=== PATIENT | female | born 1965 | race Caucasian/White ===

== ENCOUNTER 2025-03-28 10:58 | Outpatient (CLI) | payer OTHER, SELFPAY ==
--- NOTE | ~2025-03-28 | XR_ITS ---
The AP and oblique views of the SI joints Clinical history: Sacroiliitis FINDINGS: No fracture or dislocation seen. Joint spaces are intact. There is minimal degenerative brad nge of the SI joints. Soft tissues are unremarkable. IMPRESSION: Minimal degenerative change of the SI joints. Reviewed, dictated and finalized at location .
--- NOTE | ~2025-03-28 | XR_ITS ---
3 VIEWS THORACIC SPINE Ordering provider: Sd Caldwell MD History: . M54.6 - Pain in thoracic spine, NKI, DETORIATING SPINE . Comparison: None. FINDINGS: VERTEBRAL BODIES: Dextroscoliosis. Normal height and alignment. No visible fracture or subluxation. D egenerative changes of the spine. DISK SPACES: Narrowing of the disc spaces in the upper and midthoracic area. SOFT TISSUES: Normal. IMPRESSION: No acute osseous abnormality of the thoracic spine. Multilevel degenerative disc disease. Mild dextroscoliosis. Reviewed, dictated and finalized at location A.
--- NOTE | ~2025-03-28 | XR_ITS ---
3 VIEWS LUMBAR SPINE Ordering provider: Sd Caldwell MD History: . M54.9 - Dorsalgia, unspecified, NKI . Comparison: None. FINDINGS: VERTEBRAL BODIES:Minimal anterolisthesis at the level of L3-4. No visible fracture or subluxation. M ild dextroscoliosis. DISK SPACES: Narrowing of the disc L2-L3, L3-L4, L4-L5 and L5-S1. Facet joint disease at the level of L4-L5 and L5-S1. SOFT TISSUES: Normal. IMPRESSION: No acute osseous abnormality lumbar spine. Multilevel degenerative disc disease. Reviewed, dictated and finalized at location A.
--- NOTE | ~2025-03-28 | XR_ITS ---
AP view of the pelvis and AP and lateral views of the bilateral hips Clinical history: Pain Findings: No acute fracture or dislocation is seen. Osseous alignment is anatomic. Bilateral hip and SI joint spaces are preserved. Soft tissues are unremarkable. Impression: No significant abnormality is seen. Reviewed, dictated and finalized at location . Impression: No significant abnormality is seen.
--- OUTSIDE RECORDS SUMMARY | 2025-03-28 12:01 | XMS_ITS | Clinical Summary ---
Author Organization [facility] Address [address] [place] [address] Care Team Providers Care Mash Filter Cloth Changer Name Role Phone Jorge Alberto Young DO Primary Care Provider Source Comments [facility],non-owned Affiliates and Associated Physician Practices is amultiple site organization consisting of ambulatory clinics and hospital sitesin [place], [place], [place] and [place]. This disclosure is being madepursuant to the Care Everywhere program and may not contain all information available regarding this patient. Last updated 18.[facility] Allergies No known active allergies Medications * Be aware that medications may not be up to date on this document. Alwaysverify current medications with the patient. meloxicam (MOBIC) 15 MG tablet Take 15 mg by mouth 02/12/2019 Active Citalopram Hydrobromide (CITALOPRAM PO) Acti ve methocarbamol (Robaxin) 500 MG tabletIndications :Spasm of muscle Take 1 (one) tablet by mouth every 6 hours as needed for Muscle Spasms 90 tablet 3 09/24/2022 Active Active Problems Problem Noted Date Diagnosed Date Lumbar radiculopathy 07/03/2021 Grief reaction 06/22/2020 Anxiety 12/25/2017 Left knee pain 11/05/2017 Hyperlipidemia 06/07/2016 Hypertension 06/07/2016 Immunizations Immunization Administration Dates Next Due INFLUENZA VACCINE 08/15/2017,09/29/2015 TDAP (7yrs+) 09/07/2016 Social History Tobacco Use Types Packs/Day Years Used Date Smoking Tobacco: Never Smokeless Tobacco: Never Tobacco Cessation:Counseling Given: Not Answered Alcohol Use Standard Drinks/Week Comments No 0 (1 standard drink = 0.6 oz pur e alcohol) PHQ-2 Answer Date Recorded PHQ2 TOTAL SCORE 2 09/24/2022 Comments No Sex and Gender Information Value Date Recorded Sex Assigned at Not on file Legal Sex Female 4:08 PM CDT Gender Identity Not on file Sexual Orientation Not on file Last Filed Vital Signs Vital Sign Reading Time Taken Comments Blood Pressure 138/88 09/24/2022 10:42 AM CDT Pulse 89 09/24/2022 10:42 AM CDT Temperature 36.7 C (98 F) 09/24/2022 10:42 AM CDT Respiratory Rate 16 05/08/2019 2:23 PM CDT Oxygen Saturation 99% 09/24/2022 10:42 AM CDT Inhaled Oxygen Concentration - - Weight 63 kg (138 lb 12.8 oz) 09/24/2022 10:42 A M CDT Height 170.2 cm (5' 7 ) 09/24/2022 10:42 AM CDT Body Mass Index 21.74 09/24/2022 10:42 AM CDT Plan of Treatment Health Maintenance Due Date Last Done Comments COLOGUARD (AGES 45-75) - COL ON CA SCREENING 1963 COLON MONITORING 1963 COLONOSCOPY - COLON CA SCREENING 1963 CT COLONOGRAPHY - COLON CA SCREENING 1963 Colorectal Cancer Screening 1963 FIT - COLON CA SCREENING 1963 FLEX SIG - COLON CA SCREENING 1963 MAMMOGRAM 1963 PAP SMEAR 1963 HIV SCREENING 1978 PNEUMOCOCCAL VACCINE 50+ (1 of 1 - PCV) 2013 ZOSTER VACCINE (1 of 2) 2013 COVID-19 VACCINE ( - 2023-2 5 season) 2024 DEPRESSION SCREENING 11/24/2024 09/24/2022 INFLUENZA VACCINE (Season Ended) 2025 08/15/2017, 09/29/2015 DTAP/TDAP/TD VACCINES (2 - T d or Tdap) 09/07/2026 09/07/2016 LIPID TESTING 06/24/2027 06/24/2022, 03/12/2019 Respiratory Syncytial Virus (RSV) Vaccine Pt: or over 60 yrs (1 - 1-dose 75+ series) 2038 HEPATITIS C SCREENING Completed 06/24/2022 HEPATITIS B VACCINE Aged Out No longe r eligible based on patient's age to complete this topic HIB VACCINE Aged Out No longer eligi ble based on patient's age to complete this topic HPV VACCINE Aged Out No longer eligi ble based on patient's age to complete this topic MENINGOCOCCAL (Group B) VACCINE SHARED DECISION-MAKING Aged Out No longer eligible based on patient's age to complete this topic MENINGOCOCCAL GROUPS A/C/Y/W VACCINE Aged Out No longer eligible b ased on patient's age to complete this topic Insurance [employer] [place] [address] [place] [address] [facility] [place] [facility] [place] Member Subscriber Plan / Payer (Ef fective for All Dates) Name:Catie Jefferson Relation to Subscriber:Self Name:GARFIELD JEFFERSON Payer ID:Not on file Group ID:Not on file Type:Medicaid [place] Address: [place] [id number] [facility] [place] Member Subscriber Plan / Payer (Ef fective for All Dates) Name:Catie Jefferson Relation to Subscriber:Self Name:GARFIELD JEFFERSON Payer ID:Not on file Group ID:Not on file Type:Medicaid [place] Address: [place] [id number] [facility] [place] [facility] [place] [facility] [place] [facility] [place] [facility] [place] [facility] [place] [facility] [place] [facility] [place] [facility] [place] [facility] [place] [facility] [place] [facility] [place] [facility] [place] Member Subscriber Plan / Payer (Ef fective for All Dates) Name:Catie Jefferson Relation to Subscriber:Self Name:GARFIELD JEFFERSON Payer ID:Not on file Group ID:Not on file Type:Medicaid [place] Address: [address] Member Subscriber Plan / Payer (Ef fective for All Dates) Name:Catie Jefferson Relation to Subscriber:Self Name:GARFIELD JEFFERSON Payer ID:Not on file Group ID:Not on file Type:Medicaid [place] Address: [address] Member Subscriber Plan / Payer (Ef fective for All Dates) Name:Catie Jefferson Relation to Subscriber:Self Name:GARFIELD JEFFERSON Payer ID:Not on file Group ID:Not on file Type:Medicaid [place] Address: [address] Care Teams Mash Filter Cloth Changer Relationship Specialty Start Date End Date Jorge Alberto Young DO PCP - General Family Medicine 05/08/19
--- OUTSIDE RECORDS SUMMARY | 2025-03-28 12:01 | XMS_ITS | Encounter Summary ---
Author Organization [facility] Care Team Providers Care Delivery Department Supervisor Name Role Phone Unknown, Notinfile Primary Care Provider Unavail able Encounter Details Date Type Department Care Team (Latest Contact Info) Description 01/19/2018 Orders Only [facility] CLINCONV ProviderIshmael MD [address] [place] [address] Social History Tobacco Use Types Packs/Day Years Used Date Smoking Tobacco: Never Assessed Comments Unknown Sex and Gender Information Value Date Recorded Sex Assigned at Not on file Legal Sex Female 2:24 AM HYDROELECTRIC MECHANIC Gender Identity Not on file Sexual Orientation Not on file documented as of this encounter Plan of Treatment Not on file documented as of this encounter Procedures Procedure Name Priority Date/Time Associated Diagnosis Comments SCAN - PATHOLOGY 01/19/2018 12:0 0 AM HYDROELECTRIC MECHANIC CYTOLOGY 01/19/2018 12:00 AM HYDROELECTRIC MECHANIC documented in this encounter Results * CYTOLOGY (01/19/2018 12:00 AM HYDROELECTRIC MECHANIC) Narrative 01/19/2018 12:00 AM HYDROELECTRIC MECHANIC Ordered by an unspecified provider. Historical Provider LAB CYTOLOGY ORDERABLES F inal Result * SCAN - PATHOLOGY (01/19/2018 12:00 AM HYDROELECTRIC MECHANIC) Narrative 01/19/2018 12:00 AM HYDROELECTRIC MECHANIC Ordered by an unspecified provider. us Historical Provider Final Res ult documented in this encounter Visit Diagnoses Not on filedocumented in this encounter Care Teams Delivery Department Supervisor Relationship Specialty Start Date End Date Unknown, Notinfluiza PCP - General 01/19/18 documented as of this encounter
--- OUTSIDE RECORDS SUMMARY | 2025-03-28 12:01 | XMS_ITS | Encounter Summary ---
Author Organization [facility] Address [facility] [place] [address] Care Team Providers Care Distribution Operation Supervisor Name Role Phone Shelly Thomas MD Primary Care Provider [phone] None, Provider Primary Care Provider Nelson Soto DO Primary Care Provider [phone] Encounter Details Date Type Department Care Team (Late st Contact Info) Description 06/27/2022 MyChart Message Enc [facility] Family Medicine [facility] [address] [place] [address] Shelly Thomas MD [address] [place] [address] UA Social History Tobacco Use Types Packs/Day Years Used Date Smoking Tobacco: Every Day Cigarettes Smokeless Tobacco: Never Comments:provider will addre ss Alcohol Use Standard Drinks/Week Comments No 0 (1 standard drink = 0.6 oz pur e alcohol) PHQ-2 Answer Date Recorded PHQ-2 Score - If the patient scores above 3, please move on to questions 3-9 6 06/24/2022 Comments No Sex and Gender Information Value Date Recorded Sex Assigned at Female 02/25/2025 12:58 PM CDT Legal Sex Female 4:39 PM CDT Gender Identity Not on file Sexual Orientation Not on file 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 No / Unsure 06/26/2022 1:17 PM CDT documented as of this encounter Plan of Treatment Upcoming Encounters Date Type Department Care Team (Late st Contact Info) Description 03/28/2025 3:00 PM CDT Appointment [facility] Mammography [address] [place] [address] Elo Arenas, BRITTNY [address] [place], [place] [id number] 08/29/2025 10:00 AM CDT Office Visit [facility] Family Medicine - [place] [address] [place] [address] Nelson [place] [address] documented as of this encounter Visit Diagnoses Not on filedocumented in this encounter Additional Health Concerns Assessment Noted Time PHQ-9 Depression Total Score: 16 022 2:52 PM CDT documented as of this encounter Care Teams Distribution Operation Supervisor Relationship Specialty Start Date End Date Shelly Thomas MD [address] [place] [address] PCP - General FAMILY PRACTICE 06/24/22 01/09/23 None, Provider, PCP - General UNKNOWN PHYSICIAN SPECIALTY 01/10/23 05/09/24 Nelson Whatley DO [address] [place], [place] [id number] PCP - General FAMILY PRACTICE 05/10/24 documented as of this encounter
--- OUTSIDE RECORDS SUMMARY | 2025-03-28 12:01 | XMS_ITS | Encounter Summary ---
Author Organization [facility] Address [address] [place] [address] Care Team Providers Care Mortgage Processor Name Role Phone Chava John MD Primary Care Provider [phone] Shelly Thomas MD Primary Care Provider [phone], Provider Primary Care Provider UnavailShelly Mcgarry MD Primary Care Provider [phone] None, Provider Primary Care Provider UnavailNelson Bear DO Primary Care Provider [phone] Reason for Referral * Surgical (Routine) - Closed Specialty Diagnoses / Procedures Referred By Mildred brock Referred To Contact Procedures Case request operating room: INJECTION EPIDURAL TRANSFORAMINAL L5-S1 Ashley Ojeda APNP Phone: tel: fax: Referral ID Status Reason Start Date Expiration Date Visits Re quested Visits Authorized [id number] Closed 07/03/2021 08/03/2022 1 1 Encounter Details Date Type Department Care Team (Late st Contact Info) Description 07/03/2021 Prep for Procedure [facility] [place] [address] [id number] Ashley Ojeda APNP [address] [place] [address] Social History Tobacco Use Types Packs/Day Years Used Date Smoking Tobacco: Every Day Cigarettes Smokeless Tobacco: Never Alcohol Use Standard Drinks/Week Comments No 0 (1 standard drink = 0.6 oz pur e alcohol) Comments No Sex and Gender Information Value [...] Exposure Response Date Recorded In the last month, have you been in contact with someone who was confirmed or suspected to have Coronavirus / COVID-19? No / Unsure 07/03/2021 11:07 AM CDT documented as of this encounter Functional Status * Calculated C-SSRS Risk Score (Lifetime/Recent) Answer Date of Assessment Author Status No Risk Indicated 07/03/2021 11:43 AM CDT Zuleima Marsh RN Active * Douglas Suicide Severity Rating Scale (Screener/Recent Self-Report) Question Answer Date of Assessment Author Status 1. Wish to be (Past 1 Month) No 07/03/2021 11:43 AM CDT Bonnie Marsh RN Eliseo tive 2. Non-Specific Active Suicidal Thoughts (Past 1 Month) No 07/03/2021 11:43 AM CDT Bonnie Marsh RN Eliseo tive 6. Suicidal Behavior (Lifetime) No 07/03/2021 11:43 AM CDT Bonnie Marsh RN Ac tive documented as of this encounter Plan of Treatment Upcoming Encounters Date Type Department Care Team (Late st Contact Info) Description 03/28/2025 3:00 PM CDT Appointment [facility] Mammography [address] [place] [address] Elo Arenas NP [address] [place] [address] 08/29/2025 10:00 AM CDT Office Visit [facility] Family Medicine - [place] [address] [place] [address] [place] [address] Scheduled Orders Name Type Priority Associated Diagnoses Order Schedule Case request operating room: INJECTION EPIDURAL TRANSFORAMINAL L5-S1 Case Request Routine Once for 1 Occurrences starting 07/03/2021 until 07/03/2021 documented as of this encounter Visit Diagnoses Not on filedocumented in this encounter Care Teams Mortgage Processor Relationship Specialty Start Date End Date Chava John MD PCP - General FAMILY PRACTICE 05/05/20 05/23/22 Shelly Thomas MD [address] [place] [address] PCP - General FAMILY PRACTICE 05/24/22 06/08/22 None, ProviderMD PCP - General 06/09/22 06/23/22 Shelly Thomas MD [facility] [place] [address] PCP - General FAMILY PRACTICE 06/24/22 01/09/23 None, ProviderMD PCP - General UNKNOWN PHYSICIAN SPECIALTY 01/10/23 05/09/24 Nelson Whatley DO [address] [place] [address] PCP - General FAMILY PRACTICE 05/10/24 documented as of this encounter
--- OUTSIDE RECORDS SUMMARY | 2025-03-28 12:01 | XMS_ITS | Encounter Summary ---
Author Organization [facility] Address [address] [place] [address] Care Team Providers Care Sec Accountant Name Role Phone Nelson Whatley DO Primary Care Provider [phone] Encounter Details Date Type Department Care Team (Late st Contact Info) Description 10/11/2024 MyChart Message Enc [facility] Family Medicine [facility] [address] [place] [address] Nelson Whatley DO [address] [place] [address] Antidepressant Social History Tobacco Use Types Packs/Day Years Used Date Smoking Tobacco: Every Day Cigarettes Passive Smoke Exposure: Current Smokeless Tobacco: Never Comments:provider will addre ss Alcohol Use Standard Drinks/Week Comments No 0 (1 standard drink = 0.6 oz pur e alcohol) PHQ-2 Answer Date Recorded Patient Health Questionnaire-2 Score 4 08/18/2024 Comments No Sex and Gender Information Value Date Recorded Sex Assigned at Female 02/25/2025 12:58 PM CDT Legal Sex Female 4:39 PM CDT Gender Identity Not on file Sexual Orientation Not on file 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 Mammography [address] [place] [address] Elo Arenas, BRITTNY [address] [place] [address] 08/29/2025 10:00 AM CDT Office Visit [facility] Family Medicine - [place] [address] [place] [phone] Nelson Whatley DO [address] [place] [address] documented as of this encounter Visit Diagnoses Not on filedocumented in this encounter Additional Health Concerns Assessment Noted Time PHQ-9 Depression Total Score: 12 024 11:05 AM CDT documented as of this encounter Care Teams Sec Accountant Relationship Specialty Start Date End Date Nelson Whatley DO [address] [place] [address] PCP - General FAMILY PRACTICE 05/10/24 documented as of this encounter
--- OUTSIDE RECORDS SUMMARY | 2025-03-28 12:01 | XMS_ITS | Encounter Summary ---
Author Organization [facility] Address [facility] [place] [address] Care Team Providers Care Ships Or Barges Loader Name Role Phone Shelly Thomas MD Primary Care Provider [phone] None, Provider Primary Care Provider Nelson Soto DO Primary Care Provider [phone] Encounter Details Date Type Department Care Team (Late st Contact Info) Description 07/20/2022 MyChart Message Enc [facility] Family Medicine [facility] [address] [place] [address] Shelly Thomas MD [address] [place] [address] Covid Social History Tobacco Use Types Packs/Day Years [...] was confirmed or suspected to have Coronavirus/COVID-19? Yes 07/09/2022 2:53 PM CDT documented as of this encounter Plan of Treatment Upcoming Encounters Date Type Department Care Team (Late st Contact Info) Description 03/28/2025 3:00 PM CDT Appointment [facility] Mammography [address] [place] [address] Elo Arenas, BRITTNY [address] [place], [place] [phone] 08/29/2025 10:00 AM CDT Office Visit [facility] Family Medicine - [place] [address] [place] [address] Nelson Whatley DO [address] [place] [address] documented as of this encounter Visit Diagnoses Not on filedocumented in this encounter Additional Health Concerns Assessment Noted Time PHQ-9 Depression Total Score: 16 022 2:52 PM CDT documented as of this encounter Care Teams Ships Or Barges Loader Relationship Specialty Start Date End Date Shelly Thomas MD [address] [place] [address] PCP - General FAMILY PRACTICE 06/24/22 01/09/23 None, Provider, PCP - General UNKNOWN PHYSICIAN SPECIALTY 01/10/23 05/09/24 Nelson Whatley DO [address] [place] [address] PCP - General FAMILY PRACTICE 05/10/24 documented as of this encounter
--- OUTSIDE RECORDS SUMMARY | 2025-03-28 12:01 | XMS_ITS | Encounter Summary ---
Author Organization [facility] Address [address] [place] [address] Care Team Providers Care Vp Strategic Partnerships Name Role Phone Shelly Thomas MD Primary Care Provider [phone] None, Provider Primary Care Provider Nelson Soto DO Primary Care Provider [phone] Encounter Details Date Type Department Care Team ([facility] Contact Info) Description 11/01/2022 TenBu Technologiest Message Enc [facility] Family Medicine [facility] [address] [place] [address] [place] [address] [place] [address] I need appt with someone for mental health Social History Tobacco Use Types Packs/Day Years [...] Encounters Date Type Department Care Team (Late Contact Info) Description 03/28/2025 3:[address] [facility] Mammography [address] [place] [address] Elo Arenas, BRITTNY [address] [place], [place] [id number] 08/29/2025 10:00 AM CDT Office Visit [facility] Family Medicine - [place] [address] [place] [address] Nelson Whatley DO [address] [place] [address] documented as of this encounter Visit Diagnoses Not on filedocumented in this encounter Additional Health Concerns Assessment Noted Time PHQ-9 Depression Total Score: 16 022 2:52 PM CDT documented as of this encounter Care Teams Vp Strategic Partnerships Relationship Specialty Start Date End Date Shelly Thomas MD [address] [place] [address] PCP - General FAMILY PRACTICE 06/24/22 01/09/23 None, Provider, PCP - General UNKNOWN PHYSICIAN SPECIALTY 01/10/23 05/09/24 Nelson Whatley DO [address] [place], [place] [phone] PCP - General FAMILY PRACTICE 05/10/24 documented as of this encounter
--- OUTSIDE RECORDS SUMMARY | 2025-03-28 12:01 | XMS_ITS | Encounter Summary ---
Author Organization [facility] Address [facility] [place] [address] Care Team Providers Care Manufactured Buildings Repairer Name Role Phone Shelly Thomas MD Primary Care Provider [phone] None, Provider Primary Care Provider Nelson Soto DO Primary Care Provider [phone] Encounter Details Date Type Department Care Team (Late st Contact Info) Description 09/02/2022 Hamstersoftt Message Enc [facility] Family Medicine [facility] [address] [place] [address] Shelly Thomas MD [address] [place] [address] Meds Social History Tobacco Use Types Packs/Day Years [...] confirmed or suspected to have Coronavirus/COVID-19? Yes 08/13/2022 9:30 AM CDT documented as of this encounter Plan of Treatment Upcoming Encounters Date Type Department Care Team (Late st Contact Info) Description 03/28/2025 3:00 PM CDT Appointment [facility] Mammography [address] [place] [address] Elo Arenas, BRITTNY [address] [place], [place] [phone] 08/29/2025 10:00 AM CDT Office Visit [facility] Family Medicine - [place] [address] [place] [address] Nelson [place] [address] documented as of this encounter Visit Diagnoses Not on filedocumented in this encounter Additional Health Concerns Assessment Noted Time PHQ-9 Depression Total Score: 16 022 2:52 PM CDT documented as of this encounter Care Teams Manufactured Buildings Repairer Relationship Specialty Start Date End Date Shelly Thomas MD [address] [place] [address] PCP - General FAMILY PRACTICE 06/24/22 01/09/23 None, Provider, PCP - General UNKNOWN PHYSICIAN SPECIALTY 01/10/23 05/09/24 Nelson Whatley DO [address] [place], [place] [phone] PCP - General FAMILY PRACTICE 05/10/24 documented as of this encounter
--- OUTSIDE RECORDS SUMMARY | 2025-03-28 12:01 | XMS_ITS | Referral Summary ---
Author Organization [facility] Address [address] [place] [address] [place] [address] Phone Care Team Providers Care Intake Worker Name Role Phone Unknown, Notinfile Primary Care Provider Unavail able Allergies No known active allergies Social History Tobacco Use Types Packs/Day Years Used Date Smoking Tobacco: Never Assessed Personal Safety Answer Date Recorded Getting School Help Needed Not on file 08/01 Comments No Sex and Gender Information Value Date Recorded Sex Assigned at Not on file Legal Sex Female 2:24 AM TORPEDO MAN Gender Identity Not on file Sexual Orientation Not on file Last Filed Vital Signs Vital Sign Reading Time Taken Comments Blood Pressure 113/69 06/22/2023 6:58 PM CDT Pulse 91 06/22/2023 6:58 PM CDT Temperature 36.9 C (98.4 F) 06/22/2023 6:58 PM CDT Respiratory Rate 14 06/22/2023 6:58 PM CDT Oxygen Saturation 96% 06/22/2023 6:58 PM CDT Inhaled Oxygen Concentration - - Weight 63.2 kg (139 lb 5.3 oz) 06/22/2023 6:58 P M CDT Height 172.7 cm (5' 8 ) 01/19/2018 6:00 PM TORPEDO MAN Body Mass Index 21.19 01/19/2018 6:00 PM TORPEDO MAN Plan of Treatment Not on file Procedures Procedure Name Priority Date/Time Associated Diagnosis Comments THINPREP PAP Routine 07/24/2015 6:00 PM CDT SCREENING MAMMOGRAM 2D BILATERAL Routine 07/26/2014 5:54 PM CDT from Last 3 Months or Most Recently Relevant to Health Maintenance Results * ThinPrep Pap (07/24/2015 6:00 PM CDT) Thin Prep Pap Smear SEE BELOW () 08/03 2:17 PM CDT [facility] HISTORICAL RESULTS Comment: Manual Qa Tester ThinPrep Cytology Final Report ThinPrep Pap Specimen Source Cervix/Endocervix Specimen Adequacy Satisfactory for interpretation, endocervical cells (transformation zone) not present. Interpretation Negative for intraepithelial lesion or malignancy. 08/03/15 Mine Inspector Federal: BETITO Mcmullen(ASC) 08/03/15 Verified By: BETITO Mcmullen(ASC) electronic signature [facility], Department of Pathology For questions regarding this case, call ext. [phone] CPT Code(s) 45092 Clinical History LMP: [id number] : N : N IUD: N Hormone Therapy: N Postmenopausal: N Previous surgery date and type: N Hysterectomy: N Chemotherapy: N NAHUN Exposure: N Radiation: N Previous Abnormal Pap? Details: N Diagnostic or Screening Pap Test: Screening Performed by [facility], [address] [place] [id number] [email or web address], Caio James MD - Lab. Director 07/24/2015 6:00 PM CDT 07/25/2015 3:17 PM CDT Sd Soria MD LAB PATHOLOGY ORDERABLE S Final Result [facility] HISTORICAL RESULTS * Screening Mammogram 2D Bilateral (07/26/2014 5:54 PM CDT) Anatomical Region Laterality Modality Breast Bilateral Mammography 07/26/2014 5:54 PM CDT Impressions 07/27/2014 9:18 AM CDT No mammographic evidence of malignancy. Routine annual screening mammography is recommended. ASSESSMENT: BI-RADS: 1 NEGATIVE. The patient will be entered into a reminder system for an annual screening mammogram in 1 year. THIS IS AN ELECTRONICALLY VERIFIED REPORT 07/27/2014 9:15 AM: Michael Prescott M.D. Michael Prescott M.D. [place]:verónica 09:15 AM 09:15 AM [facility] [EOD] Narrative 07/27/2014 9:18 AM CDT EXAMINATION: BILATERAL DIGITAL SCREENING MAMMOGRAM HISTORY: Routine screening. Family history of mother with breast cancer at age 65. COMPARISON: 10/28/2007, 06/12/2011 FINDINGS: There has been no suspicious interval change. There are scattered areas of fibroglandular density. There is no dominant mass, suspicious calcification or architectural distortion. CAD was utilized to evaluate this mammogram. Procedure Note Provider, MD Ishmael - 04/09/2021 EXAMINATION: BILATERAL DIGITAL SCREENING MAMMOGRAM HISTORY: Routine screening. Family history of mother with breast cancerat age 65. COMPARISON: 10/28/2007, 06/12/2011 FINDINGS: There has been no suspicious interval change. There are scattered areas of fibroglandular density. There is no dominant mass, suspicious calcification or architectural distortion. CAD was utilized to evaluate this mammogram. IMPRESSION: No mammographic evidence of malignancy. Routine annual screeningmammography is recommended. ASSESSMENT: BI-RADS: 1 NEGATIVE. The patient will be entered into [employer] PTY system for an annual screening mammogram in 1 year. THIS IS AN ELECTRONICALLY VERIFIED REPORT 07/27/2014 9:15 AM: Michael Prescott M.D. Michael Prescott M.D. NH:verónica 09:15 AM 09:15 AM [facility] [EOD] Sd Soria MD IMG MAMMO PROCEDURES Fi nal Result from Last 3 Months or Most Recently Relevant to Health Maintenance Insurance [facility] Care Teams Intake Worker Relationship Specialty Start Date End Date Unknown, Notinfile PCP - General 01/19/18
--- OUTSIDE RECORDS SUMMARY | 2025-03-28 12:01 | XMS_ITS | Encounter Summary ---
Author Organization [facility] Address [address] [place] [address] Care Team Providers Care Skein Mercerizing Machine Operator Name Role Phone Nelson Whatley DO Primary Care Provider [phone] Encounter Details Date Type Department Care Team (Late st Contact Info) Description 03/17/2025 MyChart Message Enc [facility] Medical Group Family Medicine [facility] [address] [place] [address] Nelson Whatley DO [address] [place] [address] back pain Social History Tobacco Use Types Packs/Day Years Used Date Smoking Tobacco: Every Day Cigarettes 0.5 3 Passive Smoke Exposure: Current Smokeless Tobacco: Never Comments:provider will addre ss Alcohol Use Standard Drinks/Week Comments No 0 (1 standard drink = 0.6 oz pur e alcohol) PHQ-2 Answer Date Recorded Patient Health Questionnaire-2 Score 0 02/25/2025 Comments No Sex and Gender Information Value [...] Info) Description 03/28/2025 3:00 PM CDT Appointment [facility] Mammography [address] [place] [address] Elo Arenas, BRITTNY [address] [place] [address] 08/29/2025 10:00 AM CDT Office Visit [facility] Medical Group Family Medicine - [place] [address] [place] [phone] Nelson Whatley DO [address] [place] [address] documented as of this encounter Visit Diagnoses Not on filedocumented in this encounter Additional Health Concerns Assessment Noted Time PHQ-9 Depression Total Score: 0 02/26/20 25 1:00 PM CDT documented as of this encounter Care Teams Skein Mercerizing Machine Operator Relationship Specialty Start Date End Date Nelson Whatley DO [address] [place] [address] PCP - General FAMILY PRACTICE 05/10/24 documented as of this encounter
--- OUTSIDE RECORDS SUMMARY | 2025-03-28 12:01 | XMS_ITS | Clinical Summary ---
Author Organization [facility] Address [address] [place] [address] Care Team Providers Care Loading Supervisor Name Role Phone Nelson Whatley DO Primary Care Provider Allergies No known active allergies Medications fluticasone propionate (FLONASE) 50 MCG/ACT nasal spray 4 Active atorvastatin (LIPITOR) 20 MG tabletIndications: Mixed hyperlipidemia Take 1 tablet (20 mg total) by mouth daily. 90 tablet 3 4 Active gabapentin (NEURONTIN) 400 MG capsuleIndications :Spinal stenosis of lumbar region without neurogenic claudication Take 1 capsule (400 mg total) by mouth 3 (three) times daily. 270 capsule 3 5 12/14/19 26 Active busPIRone (BUSPAR) 15 MG tabletIndications: Generalized anxiety disorder with panic attacks Take 1 tablet (15 mg total) by mouth 2 (two) times daily. 180 tablet 1 5 Active nitrofurantoin, macrocrystal-monoh ydrate, (MACROBID) 100 MG capsule 5 Active cyclobenzaprine (FLEXERIL) 10 MG tabletIndications: Degeneration of intervertebral disc of lumbar region with discogenic back pain and lower extremity pain Take 1 tablet (10 mg total) by mouth nightly as needed for Muscle Spasms. 30 tablet 5 Active clonazePAM (KLONOPIN) 0.5 MG tabletIndications: Generalized anxiety disorder with panic attacks Take 1 tablet (0.5 mg total) by mouth 2 (two) times daily as needed (panic/anxi ety). 10 tablet 5 Active clonazePAM (KLONOPIN) 0.5 MG tabletIndications: Generalized anxiety disorder with panic attacks Take 1 tablet (0.5 mg total) by mouth 2 (two) times daily as needed (panic/anxi ety). 10 tablet 5 03/07/20 25 Discontin ued(Reord er) clonazePAM (KLONOPIN) 0.5 MG tabletIndications: Generalized anxiety disorder with panic attacks Take 1 tablet (0.5 mg total) by mouth 2 (two) times daily as needed (panic/anxi ety). 10 tablet 5 03/26/20 25 Discontin ued(Reord er) Active Problems Problem Noted Date Diagnosed Date Moderate episode of recurrent major depressive d isorder 12/09/2024 Lumbar degenerative disc disease 08/18/2024 Spinal stenosis of lumbar re gion without neurogenic claudication 08/18/2024 Chronic rhinitis 08/18/2024 Lumbar radiculopathy 07/03/2021 Generalized anxiety disorder with panic attacks 12/25/2017 Hyperlipidemia 06/07/2016 Hypertension 06/07/2016 Resolved Problems Problem Noted Date Diagnosed Date Resolved Date Anxiety 06/22/2020 08/18/2024 Grief reaction 06/22/2020 08/18/2024 Left knee pain 11/05/2017 08/18/2024 Encounter for preventive health examination 06/07/2016 07/01/2022 Physical exam, pre-employment 06/07/2016 07/01/2022 Screen for colon cancer 06/07/2016 08/06/2022 Encounters Date Type Department Care Team Description 03/21/2025 10:00 AM CDT Telemedicine [facility] Family Medicine [address] [phone] Elo Arenas NP Back Pain (Patient would like to discuss muscle relaxers. Has appointment with Pain Management on 03/28/2025.) 03/21/2025 Travel 03/17/2025 MyChart Message Enc [facility] Family Medicine [address] [phone] Nelson Whatley, DO back pain 02/25/2025 1:00 PM CDT Office Visit [facility] Medical [facility] Family Medicine - [place] [address] [place] [address] Elo Arenas NP Follow Up (Medication f/u and labs results.) 02/25/2025 Travel from Last 3 Months Immunizations Immunization Administration Dates Next Due Fluzone (IIV3, Trivalent, 0.5 ML Prefilled Syrin ge) 08/18/2024 Influenza (Generic) 08/15/2017,09/29/2015 Tdap (Generic) 09/07/2016 Family History Medical History Relation Comments Heart Disease Father Depression Maternal Grandfather Arthritis Mother Cancer Mother Heart Disease Mother Hypertension Mother Miscarriages / Stillbirths Neg Hx Relation Status Comments Brother Other lupus Father Maternal Grandfather Mother lupus Social History Tobacco Use Types Packs/Day Years Used Date Smoking Tobacco: Every Day Cigarettes 0.5 3 Passive Smoke Exposure: Current Smokeless Tobacco: Never Tobacco Cessation:Ready to Q uit: Yes; Counseling Given: Yes Comments:provider will address Alcohol Use Standard Drinks/Week Comments No 0 [...] Not on file Not o n file Last Filed Vital Signs Vital Sign Reading Time Taken Comments Blood Pressure 110/78 02/25/2025 1:32 PM CDT Pulse 89 02/25/2025 12:55 PM CDT Temperature 37 C (98.6 F) 02/25/2025 12:55 PM CDT Respiratory Rate 16 08/18/2024 10:18 AM CDT Oxygen Saturation 99% 02/25/2025 12:55 PM CDT Inhaled Oxygen Concentration - - Weight 67.8 kg (149 lb 8 oz) 02/25/2025 12:55 PM CDT Height 167 cm (5' 5.75 ) 02/25/2025 12:55 PM CDT Body Mass Index 24.31 02/25/2025 12:55 PM CDT Plan of Treatment Upcoming Encounters Date Type Department Care Team (Late st Contact Info) Description 03/28/2025 3:00 PM CDT [facility] [address] [place] [address] Elo Arenas, BRITTNY [address] [place] [address] 08/29/2025 10:00 AM CDT Office Visit [facility] Family Medicine - [place] [address] [place] [address] Nelson Whatley DO [address] [place] [address] Health Maintenance Due Date Last Done Comments Cervical Cancer Screening Pa p Smear (Age 30 to 64) Every 3 Years 1963 Colorectal Cancer Screening Colonoscopy (10 Years) 1963 Pneumococcal Vaccine: 50+ Ye ars (1 of 2 - PCV) 1982 Zoster Vaccines (1 of 2) 2013 Mammogram Screening 07/26/2016 07/26/2014 Cervical Cancer Screening Pa p with HPV Testing (Age 30 to 64) Every 5 Years 01/19/2023 01/19/2018 Cervical Cancer Screening with HPV 01/19/2023 Annual Physical 06/24/2023 06/24/2022 COVID-19 Vaccine (2 - 2023-2 5 season) 2024 09/26/2021 DTaP, Tdap and Td Vaccines ( 2 - Td or Tdap) 09/07/2026 09/07/2016 RSV Immunization or 60+ Years (1 - 1-dose 75+ series) 2038 Hepatitis C Completed 06/24/2022 PHQ-2 (Physician Rincon) Completed 02/25/2025 Meningococcal B Vaccine Aged Out No l onger eligible based on patient's age to complete this topic Meningococcal Vaccine Aged Out No cinthia priscilla eligible based on patient's age to complete this topic RSV Immunizations Under 20 Months Aged Out No longer eligible based on patient's age to complete this topic Procedures Procedure Name Priority Date/Time Associated Diagnosis Comments HEPATITIS C ANTIBODY Routine 06/24/2022 3:26 PM CDT Encounter for hepatitis C screening test for low risk patient OUTSIDE CYTOPATH CERV/VAG INTERPRET (PAP) Routine 01/19/2018 from Last 3 Months or Most Recently Relevant to Health Maintenance Results * HEPATITIS C ANTIBODY (06/24/2022 3:26 PM CDT) HEPATITIS C AB NON-REACTI VE NON-REACT SWAPNIL 06/25/2022 2:21 PM CDT [facility] Comment: ANTIBODIES TO HCV NOT DETECTED. DOES NOT EXCLUDE THE POSSIBILITY OF EXPOSURE TO HCV. 06/24/2022 3:26 PM CDT Shelly Thomas MD LABORATORY Final Result Performing Organization Address City/Va Hospital/ZIP Co de Phone Number [facility] [address] [place] [address], [phone] * PAP SMEAR WITH HPV (01/19/2018) 01/19/2018 [facility] Scanned SCANNING [facility] from Last 3 Months or Most Recently Relevant to Health Maintenance Insurance [employer] Care Teams Loading Supervisor Relationship Specialty Start Date End Date Nelson Whatley DO [address] [place] [address] PCP - General FAMILY PRACTICE 05/10/24
--- OUTSIDE RECORDS SUMMARY | 2025-03-28 12:02 | XMS_ITS | Clinical Summary ---
Author Organization [facility] Address [address] [place] [address] [place] [address] Phone Care Team Providers Care Lucerne Farmer Name Role Phone Unknown, Notinfile Primary Care Provider Unavail able Allergies No known active allergies Social History Tobacco Use Types Packs/Day Years Used Date Smoking Tobacco: Never Assessed Personal Safety Answer Date Recorded Getting School Help Needed Not on file 08/01 Comments No Sex and Gender Information Value Date Recorded Sex Assigned at Not on file Legal Sex Female 2:24 AM METAL FABRICATING INSPECTOR Gender Identity Not on file Sexual Orientation [...] cm (5' 8 ) 01/19/2018 6:00 PM METAL FABRICATING INSPECTOR Body Mass Index 21.19 01/19/2018 6:00 PM METAL FABRICATING INSPECTOR Plan of Treatment Health Maintenance Due Date Last Done Comments Colon Cancer Screening-Colonoscopy 1963 Depression Screening 1963 Hepatitis C Screening 1963 Hepatitis B Screening 1981 Regular Well Visit/Exam 18-64 1981 Zoster Vaccine (1 of 2) 2013 Breast Cancer Screening-Mammogram 07/26/2015 07/26/2014 Cervical Cancer Screening 07/24/2016 07/24/2015, Covid-19 Vaccine ( - season) 2024 09/26/2021 Influenza Vaccine (Season Ended) 2025 08/15/2017, 08/15/2017, 09/29/2015, Additional history exists DTaP/Tdap/Td Vaccine (2 - Td or Tdap) 09/07/2026 09/07/2016 Pneumococcal vaccine <65 Aged Out No longer eligible based on [...] SEE BELOW () 08/03 2:17 PM CDT [facility] HISTORICAL RESULTS Comment: Supervisor Opening And Picking ThinPrep Cytology Final Report ThinPrep Pap Specimen Source Cervix/Endocervix Specimen Adequacy Satisfactory for interpretation, endocervical cells (transformation zone) not present. Interpretation Negative for intraepithelial lesion or malignancy. 08/03/15 Product Builder: BETITO Mcmullen(ASCP) 08/03/15 Verified By: BETITO Mcmullen(ASCP) electronic signature [facility], Department of Pathology For questions regarding this case, call ext. [phone] CPT Code(s) 24359 Clinical History LMP: [id number] : N : N IUD: N Hormone Therapy: N Postmenopausal: N Previous surgery date and type: N Hysterectomy: N Chemotherapy: N NAHUN Exposure: N Radiation: N Previous Abnormal Pap? Details: N Diagnostic or Screening Pap Test: Screening Performed by [facility], [address] [place] [id number] [email or web address], Caio James MD - Lab. Director 07/24/2015 6:00 PM CDT 07/25/2015 3:17 PM CDT Sd Soria MD LAB PATHOLOGY ORDERABLE S Final Result [facility] HISTORICAL RESULTS * Screening Mammogram 2D Bilateral [...] Prescott M.D. NH:verónica 09:15 AM 09:15 AM [facility] [EOD] Narrative 07/27/2014 9:18 AM CDT EXAMINATION: [...] NEGATIVE. The patient will be entered into [employer] system for an annual screening mammogram in 1 year. THIS IS AN ELECTRONICALLY VERIFIED REPORT 07/27/2014 9:15 AM: Michael Prescott M.D. Michael Prescott M.D. NH:verónica 09:15 AM 09:15 AM [facility] [EOD] Sd Soria MD IMG MAMMO PROCEDURES Fi nal Result from Last 3 Months or Most Recently Relevant to Health Maintenance Insurance [facility] Care Teams Lucerne Farmer Relationship Specialty Start Date End Date Unknown, Notinfile PCP - General 01/19/18
== END 2025-03-28 10:59 | disposition home or self-care (01) ==
PROVIDERS: Visit Provider Anesthesiology Pain Medicine
DX: M46.1 Sacroiliitis, not elsewhere classified (principal); M51.34 Other intervertebral disc degeneration, thoracic region; M51.369 Other intervertebral disc degeneration, lumbar region without mention of lumbar back pain or lower extremity pain
CPT/HCPCS: 72072; 72114; 72202; 73521

== ENCOUNTER 2025-05-28 08:31 | Outpatient (CLI) | payer OTHER, SELFPAY ==
--- NOTE | ~2025-05-28 | MR_ITS ---
MRI of the lumbar spine Clinical History: Radiculopathy Technique: Axial T2-weighted images, and sagittal T1-weighted, T2-weighted, and T2 fat-sat images wer e acquired. Findings: No acute fracture seen. There is 5 mm anterolisthesis of L3 over L4. There is 4 mm retrolis thesis of L5 over S1. There are type I Modic signal changes about the L2-L3, L4-L5, and L5-S1 disc sp aces in particular. At L1-L2, there is minimal disc bulge with minimal facet arthropathy. No central canal stenosis or ne ural foraminal narrowing. At L2-L3, there is moderate to advanced degenerative distended. There is minimal disc bulge and minim al facet arthropathy. No central canal stenosis or neural foraminal narrowing. At L3-L4, there is mild degenerative disc narrowing. There is diffuse disc bulge with severe facet ar thropathy. There is minimal central canal stenosis. Neural foramina are preserved. At L4-L5, there is severe degenerative spurring. There is diffuse disc bulge with moderate to advance d facet arthropathy. No tereza central canal stenosis. There is severe right neural foraminal narrowin g. Left neural foramen preserved. At L5-S1, there is moderate to advanced degenerative disc narrowing. There is mild diffuse disc bulge and mild to moderate facet arthropathy. No central canal stenosis. There is moderate to advanced lef t neural foraminal narrowing. There is minimal right neural foraminal narrowing. Paravertebral soft tissues are unremarkable. Impression: Multilevel degenerative disc narrowing and reactive marrow signal changes, as detailed above. Multilevel neural foraminal narrowing and degenerative spondylosis, as above, worst at L4-L5 and L5-S 1. Reviewed, dictated and finalized at location M. Impression: Multilevel degenerative disc narrowing and reactive marrow signal changes, as d etailed above. Multilevel neural foraminal narrowing and degenerative spondylosis, as above, w orst at L4-L5 and L5-S1.
--- OUTSIDE RECORDS SUMMARY | 2025-05-28 08:35 | XMS_ITS | Encounter Summary ---
Author Organization [facility] Address [facility] [place] [address] Care Team Providers Care Lead Front Desk Agent Name Role Phone Shelly Thomas MD Primary Care Provider [phone] None, Provider Primary Care Provider Nelson Soto DO Primary Care Provider [phone] Encounter Details Date Type Department Care Team (Late st Contact Info) Description 06/27/2022 MyChart Message Enc [facility] Medical [facility] Family Medicine [facility] [address] [place] [address] Shelly Thomas MD [address] [place] [address] UA Social History Tobacco Use [...] Care Team (Late st Contact Info) Description 08/29/2025 10:00 AM CDT Office Visit [facility] Medical [facility] Family Medicine [facility] [address] [place] [address] Nelson Whatley DO [address] [place] [address] [place] [address] documented as of this encounter Visit Diagnoses Not on filedocumented in this encounter Additional Health Concerns Assessment Noted Time PHQ-9 Depression Total Score: 16 022 2:52 PM CDT documented as of this encounter Care Teams Lead Front Desk Agent Relationship Specialty Start Date End Date Shelly Thomas MD [address] [place] [address] PCP - General FAMILY PRACTICE 06/24/22 01/09/23 None, Provider, PCP - General UNKNOWN PHYSICIAN SPECIALTY 01/10/23 05/09/24 Nelson Whatley DO [address] [place] [address] PCP - General FAMILY PRACTICE 05/10/24 documented as of this encounter
--- OUTSIDE RECORDS SUMMARY | 2025-05-28 08:35 | XMS_ITS | Clinical Summary ---
Author Organization [facility] Address [address] [place] [address] Care Team Providers Care Reservations Agent Name Role Phone Jorge Alberto Young DO Primary Care Provider Source Comments [facility],non-owned Affiliates and Associated Physician Practices is amultiple site organization consisting of ambulatory clinics and hospital sitesin [place], [place], [place] and [place]. This disclosure is being madepursuant to the Care Everywhere program and may not contain all information available regarding this patient. Last updated 18.[facility] Allergies No known active allergies Medications * [...] A M CDT Height 170.2 cm (5' 7) 09/24/2022 10:42 AM CDT Body Mass Index [...] - COLON CA SCREENING 1963 MAMMOGRAM 1963 HIV SCREENING 1978 PAP SMEAR 1984 PNEUMOCOCCAL VACCINE 50+ (1 of 1 - PCV) 2013 ZOSTER VACCINE (1 of 2) 2013 COVID-19 VACCINE ( - 2023-2 5 season) 2024 DEPRESSION SCREENING 11/24/2024 09/24/2022 INFLUENZA VACCINE (#1) 2025 7, 09/29/2015 DTAP/TDAP/TD VACCINES (2 - T d [...] patient's age to complete this topic Insurance [employer] [place] [address] [employer] [facility] [place] [facility] [place] [employer] [facility] [facility] [place] Member Subscriber Plan / Payer (Ef fective for All Dates) Name:Catie Jefferson Relation to Subscriber:Self Name:GARFIELD JEFFERSON Payer ID:Not on file Group ID:Not on file Type:Medicaid [place] Address: [place] [id number] [employer] [facility] [facility] [place] [employer] [place] Member Subscriber Plan / Payer (Ef fective for All Dates) Name:Catie Jefferson Relation to Subscriber:Self Name:GARFIELD JEFFERSON Payer ID:Not on file Group ID:Not on file Type:Medicaid [place] Address: [place] [id number] [employer] [facility] [place] [employer] [place] [employer] [place] [employer] [place] [employer] [facility] [place] [employer] [place] [facility] [place] [facility] [place] [employer] [place] [employer] [place] [facility] [place] [employer] [facility] [place] [employer] [place] Sub[place] Plan / Payer (Ef fective for All Dates) Name:Catie Jefferson Relation to Subscriber:Self Name:GARFIELD JEFFERSON Payer ID:Not on file Group ID:Not on file Type:Medicaid [place] Address: [address] Member Subscriber Plan / Payer (Ef fective for All Dates) Name:Catie Jefferson Relation to Subscriber:Self Name:GARFIELD JEFFERSON Payer ID:Not on file Group ID:Not on file Type:Medicaid [place] Address: [address] Member Subscriber Plan / Payer (Ef fective for All Dates) Name:Catie Jefferson Relation to Subscriber:Self Name:GARFIELD JEFFERSON Payer ID:Not on file Group ID:Not on file Type:Medicaid [place] Address: [address] Care Teams Reservations Agent Relationship Specialty Start Date End Date Jorge Alberto Young DO PCP - General Family Medicine 05/08/19
--- OUTSIDE RECORDS SUMMARY | 2025-05-28 08:35 | XMS_ITS | Encounter Summary ---
Author Organization [facility] Address [address] [place] [address] Care Team Providers Care Chain Hooker Name Role Phone Shelly Thomas MD Primary Care Provider [phone] None, Provider Primary Care Provider Nelson Soto DO Primary Care Provider [phone] Encounter Details Date Type Department Care Team ([facility] Contact Info) Description 11/01/2022 Appurifyt Message Enc [facility] Family Medicine [facility] [address] [place] [address] Shelly Thomas MD [address] [place] [address] I need appt with someone for [...] Department Care Team (Late Contact Info) Description 08/29/2025 10:00 AM CDT Office Visit [facility] Family Medicine - [place] [address] [place] [address] Nelson Whatley DO [address] [place] [address] documented as of this encounter Visit Diagnoses Not on filedocumented in this encounter Additional Health Concerns Assessment Noted Time PHQ-9 Depression Total Score: 16 022 2:52 PM CDT documented as of this encounter Care Teams Chain Hooker Relationship Specialty Start Date End Date Shelly Thomas MD [address] [place] [address] PCP - General FAMILY PRACTICE 06/24/22 01/09/23 None, Provider, PCP - General UNKNOWN PHYSICIAN SPECIALTY 01/10/23 05/09/24 Nelson Whatley DO [address] [place] [address] PCP - General FAMILY PRACTICE 05/10/24 documented as of this encounter
--- OUTSIDE RECORDS SUMMARY | 2025-05-28 08:35 | XMS_ITS | Encounter Summary ---
Author Organization [facility] Address [facility] [place] [address] Care Team Providers Care Lead Janitor Name Role Phone Shelly Thomas MD Primary Care Provider None, Provider Primary Care Provider Nelson Soto DO Primary Care Provider [phone] Encounter Details Date Type Department Care Team (Late st Contact Info) Description 09/02/2022 Viva Developmentst Message Enc [facility] Medical Group Family Medicine [facility] [address] [place] [address] Shelly Thomas MD [address] [place] [address] Meds Social History Tobacco Use [...] Description 08/29/2025 10:00 AM CDT Office Visit [facility] Medical Group Family Medicine [facility] [address] [place] [address] Nelson Whatley DO [address] [facility] [place] [address] documented as of this encounter Visit Diagnoses Not on filedocumented in this encounter Additional Health Concerns Assessment Noted Time PHQ-9 Depression Total Score: 16 022 2:52 PM CDT documented as of this encounter Care Teams Lead Janitor Relationship Specialty Start Date End Date Shelly Thomas MD [address] [place] [address] PCP - General FAMILY PRACTICE 06/24/22 01/09/23 None, Provider, PCP - General UNKNOWN PHYSICIAN SPECIALTY 01/10/23 05/09/24 Nelson Whatley DO [address] [place] [address] PCP - General FAMILY PRACTICE 05/10/24 documented as of this encounter
--- OUTSIDE RECORDS SUMMARY | 2025-05-28 08:35 | XMS_ITS | Encounter Summary ---
Author Organization [facility] Care Team Providers Care Federal District Law Clerk Name Role Phone Unknown, Notinfile Primary Care Provider Unavail able Encounter Details Date Type Department Care Team (Latest Contact Info) Description 01/19/2018 Orders Only [facility] CLINCONV ProviderIshmael MD [address] [place] [address] Social History Tobacco Use Types Packs/Day Years Used Date Smoking Tobacco: Never Assessed Comments Unknown Sex and Gender Information Value Date Recorded Sex Assigned at Not on file Legal Sex Female 2:24 AM POSTBED STITCHER Gender Identity Not on file Sexual Orientation Not on file documented as of this encounter Plan of Treatment Not on file documented as of this encounter Procedures Procedure Name Priority Date/Time Associated Diagnosis Comments SCAN - PATHOLOGY 01/19/2018 12:0 0 AM POSTBED STITCHER CYTOLOGY 01/19/2018 12:00 AM POSTBED STITCHER documented in this encounter Results * CYTOLOGY (01/19/2018 12:00 AM POSTBED STITCHER) Narrative 01/19/2018 12:00 AM POSTBED STITCHER Ordered by an unspecified provider. Historical Provider LAB CYTOLOGY ORDERABLES F inal Result * SCAN - PATHOLOGY (01/19/2018 12:00 AM POSTBED STITCHER) Narrative 01/19/2018 12:00 AM POSTBED STITCHER Ordered by an unspecified provider. us Historical Provider Final Res ult documented in this encounter Visit Diagnoses Not on filedocumented in this encounter Care Teams Federal District Law Clerk Relationship Specialty Start Date End Date Unknown, Notinfluiza PCP - General 01/19/18 documented as of this encounter
--- OUTSIDE RECORDS SUMMARY | 2025-05-28 08:35 | XMS_ITS | Encounter Summary ---
Author Organization [facility] Address [address] [place] [address] Care Team Providers Care Blender Conveyor Operator Name Role Phone PhyliciaNelson boo Pérez DURON Primary Care Provider [phone] Encounter Details Date Type Department Care Team (Latest Contact Info) Description 03/29/2025 Results Follow-Up [facility] Medical Group Family Medicine [facility] [address] [place] [address] Robin Biswas MD [address] [place] [address] COMPREHENSIVE METABOLIC PANEL, HEMOGLOBIN, GLYCOSYLATED, CBC W/DIFF AUTOMATED, Additional followed-up results: 2 Social History Tobacco Use Types Packs/Day Years [...] Description 08/29/2025 10:00 AM CDT Office Visit [facility] Medical [facility] Family Medicine - [place] [address] [place] [address] Nelson Whatley DO [address] [place] [address] documented as of this encounter Visit Diagnoses Not on filedocumented in this encounter Additional Health Concerns Assessment Noted Time PHQ-9 Depression Total Score: 0 02/26/20 25 1:00 PM CDT documented as of this encounter Care Teams Blender Conveyor Operator Relationship Specialty Start Date End Date Nelson Whatley DO [address] [place] [address] PCP - General FAMILY PRACTICE 05/10/24 documented as of this encounter
--- OUTSIDE RECORDS SUMMARY | 2025-05-28 08:35 | XMS_ITS | Clinical Summary ---
Author Organization [facility] Address [address] [place] [address] [place] [address] Phone Care Team Providers Care Security Systems Engineer Name Role Phone Unknown, Notinfile Primary Care Provider Unavail able Allergies No known active allergies Social History Tobacco Use Types Packs/Day Years Used Date Smoking Tobacco: Never Assessed Personal Safety Answer Date Recorded Getting School Help Needed Not on file 08/01 Comments No Sex and Gender Information Value Date Recorded Sex Assigned at Not on file Legal Sex Female 2:24 AM AUCTION CLERK Gender Identity Not on file Sexual Orientation [...] P M CDT Height 172.7 cm (5' 8) 01/19/2018 6:00 PM AUCTION CLERK Body Mass Index 21.19 01/19/2018 6:00 PM AUCTION CLERK Plan of Treatment Health Maintenance Due Date Last Done Comments Colon Cancer Screening-Colonoscopy 1965 Depression Screening 1963 Hepatitis C Screening 1963 Hepatitis B Screening 1981 Regular Well Visit/Exam 18-64 1981 Zoster Vaccine (1 of 2) 2013 Breast Cancer Screening-Mammogram 07/26/2015 07/26/2014 Cervical Cancer Screening 07/24/2016 07/24/2015, Covid-19 Vaccine (2 - season) 2024 09/26/2021 Influenza Vaccine (#1) 2025 7, 08/15/2017, 09/29/2015, Additional history exists DTaP/Tdap/Td Vaccine [...] SEE BELOW () 08/03 2:[address] [facility] HISTORICAL RESULTS Comment: Clinical Cytopathologist ThinPrep Cytology Final Report ThinPrep Pap Specimen Source Cervix/Endocervix Specimen Adequacy Satisfactory for interpretation, endocervical cells (transformation zone) not present. Interpretation Negative for intraepithelial lesion or malignancy. 08/03/15 Grazing Aide: BETITO Mcmullen(ASCP) 08/03/15 Verified By: BETITO Mcmullen(ASC) electronic signature [facility], Department of Pathology For questions regarding this case, call ext. [phone] CPT Code(s) 70642 Clinical History LMP: [id number] : N : N IUD: N Hormone Therapy: N Postmenopausal: N Previous surgery date and type: N Hysterectomy: N Chemotherapy: N NAHUN Exposure: N Radiation: N Previous Abnormal Pap? Details: N Diagnostic or Screening Pap Test: Screening Performed by [employer], [address] [place] [address] [email or web address], Caio James MD - Lab. Director 07/24/2015 6:00 PM CDT 07/25/2015 3:17 PM CDT Sd Soria MD LAB PATHOLOGY ORDERABLE S Final Result [facility] HISTORICAL RESULTS * Screening Mammogram 2D Bilateral [...] [place] M.D. [place]:ver[place] 09:15 AM 09:15 AM [facility] [EOD] Narrative 07/27/2014 9:18 AM CDT [...] NEGATIVE. The patient will be entered into [employer] system for an annual screening mammogram in 1 year. THIS IS AN ELECTRONICALLY VERIFIED REPORT 07/27/2014 9:15 AM: Michael Prescott M.D. Michael Prescott M.D. [place]:ver[place]ica 09:15 AM 09:15 AM [facility] [EOD] Sd Soria MD IMG MAMMO PROCEDURES Fi nal Result from Last 3 Months or Most Recently Relevant to Health Maintenance Insurance [facility] Care Teams Security Systems Engineer Relationship Specialty Start Date End Date Unknown, Notinfile PCP - General 01/19/18
--- OUTSIDE RECORDS SUMMARY | 2025-05-28 08:35 | XMS_ITS | Referral Summary ---
Author Organization [facility] Address [address] [place] [address] [place] [address] Phone Care Team Providers Care Personal Property Assessor Name Role Phone Unknown, Notinfile Primary Care Provider Unavail able Allergies No known active allergies Social History Tobacco Use Types Packs/Day Years Used Date Smoking Tobacco: Never Assessed Personal Safety Answer Date Recorded Getting School Help Needed Not on file 08/01 Comments No Sex and Gender Information Value Date Recorded Sex Assigned at Not on file Legal Sex Female 2:24 AM MECHANICAL CAD DESIGNER Gender Identity Not on file Sexual Orientation [...] 172.7 cm (5' 8) 01/19/2018 6:00 PM MECHANICAL CAD DESIGNER Body Mass Index 21.19 01/19/2018 6:00 PM MECHANICAL CAD DESIGNER Plan of Treatment Not on file Procedures Procedure Name Priority Date/Time Associated Diagnosis Comments THINPREP PAP Routine 07/24/2015 6:00 PM CDT SCREENING MAMMOGRAM 2D BILATERAL Routine 07/26/2014 5:54 PM CDT from Last 3 Months or Most Recently Relevant to Health Maintenance Results * ThinPrep Pap (07/24/2015 6:00 PM CDT) Thin Prep Pap Smear SEE BELOW () 08/03 2:17 PM CDT [facility] HISTORICAL RESULTS Comment: Shroud Line Tier ThinPrep Cytology Final Report ThinPrep Pap Specimen Source Cervix/Endocervix Specimen Adequacy Satisfactory for interpretation, endocervical cells (transformation zone) not present. Interpretation Negative for intraepithelial lesion or malignancy. 08/03/15 Jewel Supervisor: BETITO Mcmullen(ASC) 08/03/15 Verified By: BETITO Mcmullen(ASC) electronic signature [facility], Department of Pathology For questions regarding this case, call ext. [phone] CPT Code(s) 13393 Clinical History LMP: [id number] : N : N IUD: N Hormone Therapy: N Postmenopausal: N Previous surgery date and type: N Hysterectomy: N Chemotherapy: N NAHUN Exposure: N Radiation: N Previous Abnormal Pap? Details: N Diagnostic or Screening Pap Test: Screening Performed by [facility], [address] [place] [id number] [email or web address], Caio James MD - Lab. Director 07/24/2015 6:00 PM CDT 07/25/2015 3:17 PM CDT Sd Soria MD LAB PATHOLOGY ORDERABLE S Final Result [facility] HISTORICAL RESULTS * Screening Mammogram 2D Bilateral [...] Prescott M.D. NH:verónica 09:15 AM 09:15 AM [facility] [EOD] Narrative 07/27/2014 9:18 AM CDT EXAMINATION: [...] NEGATIVE. The patient will be entered into [employer] system for an annual screening mammogram in 1 year. THIS IS AN ELECTRONICALLY VERIFIED REPORT 07/27/2014 9:15 AM: Michael Prescott M.D. Michael Prescott M.D. NH:verónica 09:15 AM 09:15 AM [facility] [EOD] Sd Soria MD IMG MAMMO PROCEDURES Fi nal Result from Last 3 Months or Most Recently Relevant to Health Maintenance Insurance [facility] Care Teams Personal Property Assessor Relationship Specialty Start Date End Date Unknown, Notinfile PCP - General 01/19/18
--- OUTSIDE RECORDS SUMMARY | 2025-05-28 08:35 | XMS_ITS | Encounter Summary ---
Author Organization [facility] Address [address] [place] [address] Care Team Providers Care Dance Historian Name Role Phone Chava John MD Primary Care Provider Shelly Thomas MD Primary Care Provider [phone] None, Provider Primary Care Provider UnavailShelly Mcgarry MD Primary Care Provider [phone] None, Provider Primary Care Provider UnavailNelson Bear DO Primary Care Provider [phone] Reason for Referral * Surgical (Routine) - Closed Specialty Diagnoses / Procedures Referred By Mildred brock Referred To Contact Procedures Case request operating room: INJECTION EPIDURAL TRANSFORAMINAL L5-S1 Ashley Ojeda APNP Phone: tel: fax: Referral ID Status Reason Start Date Expiration Date Visits Re quested Visits Authorized [id number] Closed 07/03/2021 08/03/2022 1 1 Encounter Details Date Type Department Care Team (Late st Contact Info) Description 07/03/2021 Prep for Procedure [facility] [place] [address] [id number] Ashley Ojeda APNP [address] [place] [address] Social History Tobacco Use Types [...] Start Date 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 Wish to be (Past 1 Month) No 07/03/2021 11:43 AM CDT Bonnie Marsh RN Ac tive 2. Non-Specific Active Suicidal Thoughts (Past 1 Month) No 07/03/2021 11:43 AM CDT Bonnie Marsh RN Ac tive 6. Suicidal Behavior (Lifetime) No 07/03/2021 11:43 AM CDT Bonnie Marsh RN Ac tive documented as of this encounter Plan of Treatment Upcoming Encounters Date Type Department Care Team (Late st Contact Info) Description 08/29/2025 10:00 AM CDT Office Visit [facility] Medical Group Family Medicine - [address] [place] [address] Nelson Whatley DO [address] [place] [address] Scheduled Orders Name Type Priority Associated Diagnoses Order Schedule Case request operating room: INJECTION EPIDURAL TRANSFORAMINAL L5-S1 Case Request Routine Once for 1 Occurrences starting 07/03/2021 until 07/03/2021 documented as of this encounter Visit Diagnoses Not on filedocumented in this encounter Care Teams Dance Historian Relationship Specialty Start Date End Date Chava John MD PCP - General FAMILY PRACTICE 05/05/20 05/23/22 Shelly Thomas MD [address] [place] [address] PCP - General FAMILY PRACTICE 05/24/22 06/08/22 None, ProviderMD PCP - General 06/09/22 06/23/22 Shelly Thomas MD [address] [place] [address] PCP - General FAMILY PRACTICE 06/24/22 01/09/23 None, ProviderMD PCP - General UNKNOWN PHYSICIAN SPECIALTY 01/10/23 05/09/24 Nelson Whatley [place] [address] PCP - General FAMILY PRACTICE 05/10/24 documented as of this encounter
--- OUTSIDE RECORDS SUMMARY | 2025-05-28 08:35 | XMS_ITS | Encounter Summary ---
Author Organization [facility] Address [address] [place] [address] Care Team Providers Care Office 365 Consultant Name Role Phone Nelson Whatley DO Primary Care Provider Encounter Details Date Type Department Care Team (Late st Contact Info) Description 10/11/2024 MyChart Message Enc [address] [address] Nelson Whatley DO [address] [place] [address] Antidepressant Social History Tobacco Use Types Packs/Day [...] Description 08/29/2025 10:00 AM CDT Office Visit [facility] [address] [place] [address] Nelson Whatley DO [address] [place], [place] [id number] documented as of this encounter Visit Diagnoses Not on filedocumented in this encounter Additional Health Concerns Assessment Noted Time PHQ-9 Depression Total Score: 12 024 11:05 AM CDT documented as of this encounter Care Teams Office 365 Consultant Relationship Specialty Start Date End Date Nelson Whatley DO [address] [place] [address] PCP - General FAMILY PRACTICE 05/10/24 documented as of this encounter
== END 2025-05-28 08:32 | disposition home or self-care (01) ==
PROVIDERS: Visit Provider Anesthesiology Pain Medicine
DX: M48.061 Spinal stenosis, lumbar region without neurogenic claudication (principal); M48.07 Spinal stenosis, lumbosacral region; M47.816 Spondylosis without myelopathy or radiculopathy, lumbar region; M47.817 Spondylosis without myelopathy or radiculopathy, lumbosacral region
CPT/HCPCS: 72148

== ENCOUNTER 2025-07-26 08:55 | Day surgery (SDC) | payer OTHER, SELFPAY ==
[2025-07-20 08:51] VITALS: BMI 23.3
--- NOTE | ~2025-07-26 | XR_ITS ---
EXAM: XR fluoroscopy no charge - 07/26/2025 10:30 CDT History: 59 years old Female with DIAG/PROG JACY L3,L4,L5 MEDIAL BRANCH/DORSAL RAMUS NERVE BLK Fluoroscopy time: 16.9 seconds FINDINGS/ IMPRESSION: Multiple fluoroscopic images of nerve root injections. Reviewed, dictated and finalized at location N.
--- OUTSIDE RECORDS SUMMARY | 2025-07-26 09:10 | XMS_ITS | Encounter Summary ---
Author Organization [facility] Address [address] [place] [address] Care Team Providers Care Supervisor Incising Name Role Phone Nelson Whatley DO Primary Care Provider [phone] Encounter Details Date Type Department Care Team (Late st Contact Info) Description 03/17/2025 MyChart Message Enc [address] [address] Nelson Whatley DO [address] [place] [address] back pain Social History Tobacco Use Types [...] Care Team (Late st Contact Info) Description 08/17/2025 8:40 AM CDT Office Visit [facility] [address] [place] [address] Nelson Whatley DO [address] [place] [address] 08/29/2025 10:00 AM CDT Office Visit [facility] Medical Group Family Medicine - [place] [address] [place] [address] Nelson Whatley DO [address] [place] [address] documented as of this encounter Visit Diagnoses Not on filedocumented in this encounter Additional Health Concerns Assessment Noted Time PHQ-9 Depression Total Score: 0 02/26/20 25 1:00 PM CDT documented as of this encounter Care Teams Supervisor Incising Relationship Specialty Start Date End Date Nelson Whatley DO [address] [place] [address] PCP - General FAMILY PRACTICE 05/10/24 documented as of this encounter
--- OUTSIDE RECORDS SUMMARY | 2025-07-26 09:10 | XMS_ITS | Encounter Summary ---
Author Organization [facility] Address [address] [place] [address] Care Team Providers Care Automatic Clipper And Stripper Name Role Phone Nelson Whatley DO Primary Care Provider [phone] Encounter Details Date Type Department Care Team (Late st Contact Info) Description 06/28/2025 MyChart Message Enc [address] [address] Nelson Whatley DO [address] [place] [address] change meds Social History Tobacco Use Types Packs/Day Years [...] Description 08/17/2025 8:40 AM CDT Office Visit [facility] [address] [place] [phone] Nelson Whatley DO [address] [place] [address] 08/29/2025 10:00 AM CDT Office Visit [facility] Medical Group Family Medicine - [place] [address] [place] [address] Nelson Whatley DO [address] [place] [address] documented as of this encounter Visit Diagnoses Not on filedocumented in this encounter Additional Health Concerns Assessment Noted Time PHQ-9 Depression Total Score: 0 02/26/20 25 1:00 PM CDT documented as of this encounter Care Teams Automatic Clipper And Stripper Relationship Specialty Start Date End Date Nelson Whatley DO [address] [place] [address] PCP - General FAMILY PRACTICE 05/10/24 documented as of this encounter
--- OUTSIDE RECORDS SUMMARY | 2025-07-26 09:10 | XMS_ITS | Encounter Summary ---
Author Organization [facility] Address [facility] [place] [address] Care Team Providers Care Disintegrator Feeder Name Role Phone Shelly Thomas MD Primary Care Provider [phone] None, Provider Primary Care Provider Nelson Soto DO Primary Care Provider [phone] Encounter Details Date Type Department Care Team (Late st Contact Info) Description 09/02/2022 MENA360t Message Enc [facility] Medical Group Family Medicine [facility] [address] [place] [address] Shelly Thomas MD [address] [place] [address] Meds Social History Tobacco Use [...] Description 08/17/2025 8:40 AM CDT Office Visit [facility] 5 [place] [address] Nelson Whatley DO [address] [place], [place] [phone] 08/29/2025 10:00 AM CDT Office Visit [facility] [address] [place] [address] Nelson Whatley DO [address] [place], [place] [id number] documented as of this encounter Visit Diagnoses Not on filedocumented in this encounter Additional Health Concerns Assessment Noted Time PHQ-9 Depression Total Score: 16 022 2:52 PM CDT documented as of this encounter Care Teams Disintegrator Feeder Relationship Specialty Start Date End Date Shelly Thomas MD [address] [place] [address] PCP - General FAMILY PRACTICE 06/24/22 01/09/23 None, Provider, PCP - General UNKNOWN PHYSICIAN SPECIALTY 01/10/23 05/09/24 Nelson Whatley DO [address] [place], [place] [address] PCP - General FAMILY PRACTICE 05/10/24 documented as of this encounter
--- OUTSIDE RECORDS SUMMARY | 2025-07-26 09:10 | XMS_ITS | Encounter Summary ---
Author Organization [facility] Care Team Providers Care Amusement Park Entertainer Name Role Phone Unknown, Notinfile Primary Care Provider Unavail able Encounter Details Date Type Department Care Team (Latest Contact Info) Description 01/19/2018 Orders Only [facility] CLINCONV ProviderIshmael MD [address] [place] [address] Social History Tobacco Use Types Packs/Day Years Used Date Smoking Tobacco: Never Assessed Comments Unknown Sex and Gender Information Value Date Recorded Sex Assigned at Not on file Legal Sex Female 2:24 AM NEUROLOGY PROFESSOR Gender Identity Not on file Sexual Orientation Not on file documented as of this encounter Plan of Treatment Not on file documented as of this encounter Procedures Procedure Name Priority Date/Time Associated Diagnosis Comments SCAN - PATHOLOGY 01/19/2018 12:0 0 AM NEUROLOGY PROFESSOR CYTOLOGY 01/19/2018 12:00 AM NEUROLOGY PROFESSOR documented in this encounter Results * CYTOLOGY (01/19/2018 12:00 AM NEUROLOGY PROFESSOR) Narrative 01/19/2018 12:00 AM NEUROLOGY PROFESSOR Ordered by an unspecified provider. Historical Provider LAB CYTOLOGY ORDERABLES F inal Result * SCAN - PATHOLOGY (01/19/2018 12:00 AM NEUROLOGY PROFESSOR) Narrative 01/19/2018 12:00 AM NEUROLOGY PROFESSOR Ordered by an unspecified provider. us Historical Provider Final Res ult documented in this encounter Visit Diagnoses Not on filedocumented in this encounter Care Teams Amusement Park Entertainer Relationship Specialty Start Date End Date Unknown, Notinfluiza PCP - General 01/19/18 documented as of this encounter
--- OUTSIDE RECORDS SUMMARY | 2025-07-26 09:10 | XMS_ITS | Clinical Summary ---
Author Organization [facility] [employer] Address [address] [place] [address] Care Team Providers Care Power Press Tender Name Role Phone Jorge Alberto Young DO Primary Care Provider Source Comments [facility] [employer],non-owned Affiliates and Associated Physician Practices is amultiple site organization consisting of ambulatory clinics and hospital sitesin [place], [place], [place] and [place]. This disclosure is being madepursuant to the Care Everywhere program and may not contain all information available regarding this patient. Last updated 18.[facility] [employer] Allergies No known active allergies Medications * [...] patient's age to complete this topic Insurance [facility] Address: [facility] [id number] [place] [address] [place] [address] [facility] [place] [facility] [facility] [place] Member Subscriber Plan / Payer (Ef fective for All Dates) Name:Catie Jefferson Relation to Subscriber:Self Name:GARFIELD JEFFERSON Payer ID:Not on file Group ID:Not on file Type:Medicaid [place] Address: [place] [id number] [facility] [facility] [place] Member Subscriber Plan / Payer (Ef fective for All Dates) Name:Catie Jefferson Relation to Subscriber:Self Name:GARFIELD JEFFERSON Payer ID:Not on file Group ID:Not on file Type:Medicaid [place] Address: [place] [id number] [facility] [facility] [place] [facility] [place] [facility] [place] [facility] [place] [facility] [place] [facility] [place] [facility] [place] [facility] [place] [facility] [place] [facility] [place] [facility] [place] [facility] [place] Sub[place] Plan / Payer (Ef fective for All Dates) Name:Catie Jefferson Relation to Subscriber:Self Name:GARFIELD JEFFERSON Payer ID:Not on file Group ID:Not on file Type:Medicaid [place] Address: [address] Member Subscriber Plan / Payer (Ef fective for All Dates) Name:Catie Jefferson Relation to Subscriber:Self Name:GARFIELD JEFFERSON Payer ID:Not on file Group ID:Not on file Type:Medicaid [place] Address: [address] Member Subscriber Plan / Payer (Ef fective for All Dates) Name:Catie Jefferson Relation to Subscriber:Self Name:GARFIELD JEFFERSON Payer ID:Not on file Group ID:Not on file Type:Medicaid [place] Address: [address] Care Teams Power Press Tender Relationship Specialty Start Date End Date Jorge Alberto Young DO PCP - General Family Medicine 05/08/19
--- OUTSIDE RECORDS SUMMARY | 2025-07-26 09:10 | XMS_ITS | Encounter Summary ---
Author Organization [facility] Address [facility] [place] [address] Care Team Providers Care High Speed Operator Name Role Phone Shelly Thomas MD Primary Care Provider [phone] None, Provider Primary Care Provider Nelson Soto DO Primary Care Provider [phone] Encounter Details Date Type Department Care Team (Late st Contact Info) Description 06/27/2022 MyChart Message Enc [facility] Medical Group Family Medicine [facility] [address] [place] [address] Shelly Thomas MD [address] [place] [address] UA Social History Tobacco Use [...] Description 08/17/2025 8:40 AM CDT Office Visit [facility] [address] [place] [address] Nelson Whatley DO [address] [place], [place] [id number] 08/29/2025 10:00 AM CDT Office Visit [facility] [address] [place] [address] Nelson Whatley DO [address] [place], [place] [id number] documented as of this encounter Visit Diagnoses Not on filedocumented in this encounter Additional Health Concerns Assessment Noted Time PHQ-9 Depression Total Score: 16 022 2:52 PM CDT documented as of this encounter Care Teams High Speed Operator Relationship Specialty Start Date End Date Shelly Thomas MD [address] [place] [address] PCP - General FAMILY PRACTICE 06/24/22 01/09/23 None, Provider, PCP - General UNKNOWN PHYSICIAN SPECIALTY 01/10/23 05/09/24 Nelson Whatley DO [address] [place], [place] [id number] PCP - General FAMILY PRACTICE 05/10/24 documented as of this encounter
--- OUTSIDE RECORDS SUMMARY | 2025-07-26 09:10 | XMS_ITS | Encounter Summary ---
Author Organization [facility] Address [facility] [place] [address] Care Team Providers Care Casting Machine Set Up Operator Name Role Phone Shelly Thomas MD Primary Care Provider [phone] None, Provider Primary Care Provider Nelson Soto DO Primary Care Provider [phone] Encounter Details Date Type Department Care Team (Late st Contact Info) Description 07/20/2022 MyChart Message Enc [facility] Medical Group Family Medicine [facility] [address] [place] [address] Shelly Thomas MD [address] [place] [address] Covid Social History Tobacco Use [...] Description 08/17/2025 8:40 AM CDT Office Visit [facility] 5 [place] [address] Nelson Whatley DO [address] [place], [place] [id number] 08/29/2025 10:00 AM CDT Office Visit [facility] 5 [place] [address] Nelson Whatley DO [address] [place], [place] [id number] documented as of this encounter Visit Diagnoses Not on filedocumented in this encounter Additional Health Concerns Assessment Noted Time PHQ-9 Depression Total Score: 16 022 2:52 PM CDT documented as of this encounter Care Teams Casting Machine Set Up Operator Relationship Specialty Start Date End Date Shelly Thomas MD [address] [place] [address] PCP - General FAMILY PRACTICE 06/24/22 01/09/23 None, Provider, PCP - General UNKNOWN PHYSICIAN SPECIALTY 01/10/23 05/09/24 Nelson Whatley DO [address] [place], [place] [phone] PCP - General FAMILY PRACTICE 05/10/24 documented as of this encounter
--- OUTSIDE RECORDS SUMMARY | 2025-07-26 09:10 | XMS_ITS | Encounter Summary ---
Author Organization [facility] Address [address] [place] [address] Care Team Providers Care Furniture Designer Name Role Phone Nelson Whatley DO Primary Care Provider Encounter Details Date Type Department Care Team (Late st Contact Info) Description 10/11/2024 MyChart Message Enc [address] [address] Nelson Whatley DO [address] [place] [address] Antidepressant Social History Tobacco Use Types [...] Description 08/17/2025 8:40 AM CDT Office Visit [facility] 5 [place] [address] Nelson Whatley DO [address] [place] [address] 08/29/2025 10:00 AM CDT Office Visit [facility] Medical Group Family Medicine - [place] [address] [place] [address] Nelson Whatley DO [address] [place] [address] documented as of this encounter Visit Diagnoses Not on filedocumented in this encounter Additional Health Concerns Assessment Noted Time PHQ-9 Depression Total Score: 12 024 11:05 AM CDT documented as of this encounter Care Teams Furniture Designer Relationship Specialty Start Date End Date Nelson Whatley DO [address] [place] [address] PCP - General FAMILY PRACTICE 05/10/24 documented as of this encounter
--- OUTSIDE RECORDS SUMMARY | 2025-07-26 09:10 | XMS_ITS | Clinical Summary ---
Author Organization [facility] Address [address] [place] [address] [place] [address] Phone Care Team Providers Care Prosthodontist/Owner Name Role Phone Unknown, Notinfile Primary Care Provider Unavail able Allergies No known active allergies Social History Tobacco Use Types Packs/Day Years Used Date Smoking Tobacco: Never Assessed Personal Safety Answer Date Recorded Getting School Help Needed Not on file 08/01 Comments No Sex and Gender Information Value Date Recorded Sex Assigned at Not on file Legal Sex Female 2:24 AM HYDRATOR Gender Identity Not on file Sexual Orientation [...] 172.7 cm (5' 8) 01/19/2018 6:00 PM HYDRATOR Body Mass Index 21.19 01/19/2018 6:00 PM HYDRATOR Plan of Treatment Health Maintenance Due Date Last Done Comments Colon Cancer Screening-Colonoscopy 1965 Depression Screening 1963 Hepatitis C Screening 1963 Hepatitis B Screening 1981 Regular Well Visit/Exam 18-64 1981 Zoster Vaccine (1 of 2) 2013 Breast Cancer Screening-Mammogram 07/26/2015 07/26/2014 Cervical Cancer Screening 07/24/2016 07/24/2015, Covid-19 Vaccine (2 - 2024- season) 2025 09/26/2021 Influenza Vaccine (#1) 2025 7, 08/15/2017, [...] SEE BELOW () 08/03 2:17 PM CDT [facility] HISTORICAL RESULTS Comment: Purification Operator ThinPrep Cytology Final Report ThinPrep Pap Specimen Source Cervix/Endocervix Specimen Adequacy Satisfactory for interpretation, endocervical cells (transformation zone) not present. Interpretation Negative for intraepithelial lesion or malignancy. 08/03/15 Machine Stapler: BETITO Mcmullen(ASCP) 08/03/15 Verified By: BETITO Mcmullen(ASC) electronic signature [facility], Department of Pathology For questions regarding this case, call ext. [phone] CPT Code(s) 34223 Clinical History LMP: [id number] : N : N IUD: N Hormone Therapy: N Postmenopausal: N Previous surgery date and type: N Hysterectomy: N Chemotherapy: N NAHUN Exposure: N Radiation: N Previous Abnormal Pap? Details: N Diagnostic or Screening Pap Test: Screening Performed by [email or web address], [address] [place] [id number] [email or web address] [email or web address] James MD - Lab. Director 07/24/2015 6:00 PM CDT 07/25/2015 3:17 PM CDT Sd Soria MD LAB PATHOLOGY ORDERABLE S Final Result [facility] HISTORICAL RESULTS * Screening Mammogram 2D Bilateral [...] Prescott M.D. [place]:verónica 09:15 AM 09:15 AM [facility] [EOD] Narrative 07/27/2014 9:18 AM [...] NEGATIVE. The patient will be entered into [employer] system for an annual screening mammogram in 1 year. THIS IS AN ELECTRONICALLY VERIFIED REPORT 07/27/2014 9:15 AM: Michael Prescott M.D. Michael Prescott M.D. NH:verónica 09:15 AM 09:15 AM [facility] [EOD] Sd Soria MD IMG MAMMO PROCEDURES Fi nal Result from Last 3 Months or Most Recently Relevant to Health Maintenance Insurance [facility] Care Teams Prosthodontist/Owner Relationship Specialty Start Date End Date Unknown, Notinfile PCP - General 01/19/18
--- OUTSIDE RECORDS SUMMARY | 2025-07-26 09:10 | XMS_ITS | Clinical Summary ---
Author Organization [facility] Address [address] [place] [address] Care Team Providers Care Seismic Prospecting Observer Helper Name Role Phone Nelson Whatley DO Primary [...] 270 capsule 3 5 12/14/19 26 Active nitrofurantoin, macrocrystal-monoh ydrate, (MACROBID) 100 MG capsule 5 Active busPIRone (BUSPAR) 15 MG tabletIndications: Generalized anxiety disorder with panic attacks Take 1 tablet (15 mg total) by mouth 2 (two) times daily. 180 tablet 5 Active clonazePAM (KLONOPIN) 0.5 MG tabletIndications: Generalized anxiety disorder with panic attacks Take 1 tablet (0.5 mg total) by mouth 2 (two) times daily as needed (panic/anxi ety). 10 tablet 5 Active cyclobenzaprine (FLEXERIL) 10 MG tabletIndications: [...] as needed (panic/anxi ety). 10 tablet 5 06/30/20 25 Discontin ued(Reord er) cyclobenzaprine (FLEXERIL) 10 MG tabletIndications: Degeneration of intervertebral disc of lumbar region with discogenic back pain and lower extremity pain Take 1 tablet (10 mg total) by mouth nightly as needed for Muscle Spasms. 30 tablet 5 06/30/20 25 Discontin ued(Reord er) Active Problems Problem Noted Date Diagnosed Date Prediabetes 03/29/2025 Moderate episode of recurrent major depressive d [...] 06/07/2016 07/01/2022 Screen for colon cancer 06/07/2016 0806/2022 Encounters Date Type Department Care Team Description 06/28/2025 MyChart Message Enc [facility] Family Medicine [address] [address] Nelson Whatley, DO change meds 06/21/2025 Telephone [facility] Medicine [address] [address] Nelson Whatley, DO Refill Request from Last 3 Months Immunizations Immunization Administration Dates Next Due Fluzone (IIV3, Trivalent, 0.5 ML Prefilled Syrin ge) 08/18/2024 Influenza (Generic) 08/15/2017,09/29/2015 Tdap (Generic) 09/07/2016 Family History Medical History Relation Comments Heart Disease Father Depression Maternal Grandfather Arthritis Mother Breast Cancer Mother 60's Cancer Mother Heart Disease Mother Hypertension Mother [...] Start Date 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 Not on [...] 12:55 PM CDT Height 167 cm (5' 5.75) 02/25/2025 12:55 PM CDT Body Mass Index 24.31 02/25/2025 12:55 PM CDT Plan of Treatment Upcoming Encounters Date Type Department Care Team (Late st Contact Info) Description 08/17/2025 8:40 AM CDT Office Visit [facility] Medical Group Family Medicine - [place] [address] [place] [address] Nelson [place] [address] 08/29/2025 10:00 AM CDT Office Visit [facility] Medical Group Family Medicine - [place] [address] [place] [address] Nelson Whatley DO [address] [place] [address] Health Maintenance Due Date Last Done Comments Cervical Cancer Screening Pa p Smear (Age 30 to 64) Every 3 Years 1963 Colorectal Cancer Screening Colonoscopy (10 Years) 1963 Pneumococcal Vaccine: 50+ Years (1 of 2 - PCV) 1982 Zoster Vaccines (1 of 2) 2013 Cervical Cancer Screening Pa p with HPV Testing (Age 30 to 64) Every 5 Years 01/19/2023 01/19/2018 Cervical Cancer Screening wi th HPV 01/19/2023 Annual Physical 06/24/2023 06/24/2022 COVID-19 Vaccine (2 - 2024-2 6 season) 2025 09/26/2021 DTaP, Tdap and Td Vaccines ( 2 - Td or Tdap) 09/07/2026 09/07/2016 Mammogram Screening 03/28/2027 03/28/2025, 07/26/2014 RSV Immunization or 60+ Years (1 - 1-dose 75+ series) 2038 Hepatitis C Completed 06/24/2022 PHQ-2 (Physician [place]) Completed 02/25/2025 Meningococcal B Vaccine Aged Out No l onger eligible based on patient's age to complete this topic Meningococcal Vaccine Aged Out No cinthia priscilla eligible based on patient's age to complete this topic RSV Immunizations Under 20 Months Aged Out No longer eligible b ased on patient's age to complete this topic Procedures Procedure Name Priority Date/Time Associated Diagnosis Comments MG SCREENING W SEBASTIAN JACY DIGI Routine 03/28/2025 3:22 PM CDT Visit for screening mammogram HEPATITIS C ANTIBODY Routine 06/24/2022 3:26 PM CDT Encounter for hepatitis C screening test for low risk patient OUTSIDE CYTOPATH CERV/VAG INTERPRET (PAP) Routine 01/19/2018 from Last 3 Months or Most Recently Relevant to Health Maintenance Results * MG SCREENING W SEBASTIAN JACY DIGI (03/28/2025 3:22 PM CDT) Anatomical Region Laterality Modality Breast Bilateral Mammography 03/28/2025 5:07 PM CDT Impressions 03/28/2025 5:12 PM CDT ===== IMPRESSION: ===== 1. Stable mammographic appearance with no new findings to suggest malignancy in either breast. Assessment: ACR BI-RADS 1 - NEGATIVE Recommendation: 1:Routine Screening Bilateral Comments: Ordered By: FLORENCE ARENAS Interpreted By: Sherrell Toscano, 03/28/2025 5:07 PM Narrative 03/28/2025 5:12 PM CDT [address] [id number] EXAMINATION: Digital bilateral screening mammogram with 3-D tomosynthesis EXAM DATE/TIME: 03/28/2025 2:52 PM REASON FOR EXAM: screen Breast carcinoma in mother in her 60s. COMPARISON: 07/26/2014 Technique: Digital screening mammography of both breasts was performed in addition to 3-D Tomosynthesis technique. This study was read with the assistance of a computer-aided detection system. Tissue density: There are scattered areas of fibroglandular density. Findings: There is no new focal asymmetry, dominant mass lesion, area of skin thickening, or cluster of suspicious appearing calcifications in either breast to suggest malignancy. us Florence Arenas SYSTEM SUPPORT ADMINISTRATOR MAMMO Final Result * HEPATITIS C ANTIBODY (06/24/2022 3:26 PM CDT) HEPATITIS C AB NON-REACTI VE NON-REACT SWAPNIL 06/25/2022 2:21 PM CDT [facility] Comment: ANTIBODIES TO HCV NOT DETECTED. DOES NOT EXCLUDE THE POSSIBILITY OF EXPOSURE TO HCV. 06/24/2022 3:26 PM CDT Shelly Thomas MD LABORATORY Final Result Performing Organization Address City/[facility]/ZIP Co de Phone Number [facility] [address] [place] [address], [id number] * PAP SMEAR WITH HPV (01/19/2018) 01/19/2018 [facility] Scanned SCANNING Final Resu lt Performing Organization Address City/[facility]/ZIP Co de Phone Number [facility] from Last 3 Months or Most Recently Relevant to Health Maintenance [place] [place] [id number] Care Teams Seismic Prospecting Observer Helper Relationship Specialty Start Date End Date Nelson Whatley [place] [place] [address] PCP - General FAMILY PRACTICE 05/10/24
--- OUTSIDE RECORDS SUMMARY | 2025-07-26 09:10 | XMS_ITS | Encounter Summary ---
Author Organization [facility] Address [address] [place] [address] Care Team Providers Care Photo Machine Operator Name Role Phone Shelly Thomas MD Primary Care Provider [phone] None, Provider Primary Care Provider Nelson Soto DO Primary Care Provider [phone] Encounter Details Date Type Department Care Team ([facility] Contact Info) Description 11/01/2022 Okairost Message Enc [facility] Medical Group Family Medicine [facility] [address] [place] [address] Shelly Thomas MD [address] [place] [address] I need appt with someone for [...] Department Care Team (Late Contact Info) Description 08/17/2025 8:40 AM CDT Office Visit [facility] [address] [place] [phone] Nelson Whatley DO [address] [place] [address] 08/29/2025 10:00 AM CDT Office Visit [facility] [address] [place] [address] Nelson Whatley DO [address] [place] [address] documented as of this encounter Visit Diagnoses Not on filedocumented in this encounter Additional Health Concerns Assessment Noted Time PHQ-9 Depression Total Score: 16 022 2:52 PM CDT documented as of this encounter Care Teams Photo Machine Operator Relationship Specialty Start Date End Date Shelly Thomas MD [address] [place] [address] PCP - General FAMILY PRACTICE 06/24/22 01/09/23 None, Provider, PCP - General UNKNOWN PHYSICIAN SPECIALTY 01/10/23 05/09/24 Nelson Whatley DO [address] [place] [address] PCP - General FAMILY PRACTICE 05/10/24 documented as of this encounter
--- OUTSIDE RECORDS SUMMARY | 2025-07-26 09:10 | XMS_ITS | Encounter Summary ---
Author Organization [facility] Address [facility] [place] [address] Care Team Providers Care Invoice Control Clerk Name Role Phone Chava John MD Primary Care Provider [phone] Shelly Thomas MD Primary Care Provider [phone] None, Provider Primary Care Provider UnavailShelly Mcgarry MD Primary Care Provider [phone] None, Provider Primary Care Provider UnavailNelson Bear DO Primary Care Provider [phone] Reason for Referral * Surgical (Routine) - Closed Specialty Diagnoses / Procedures Referred By Mildred brock Referred To Contact Procedures Case request operating room: INJECTION EPIDURAL TRANSFORAMINAL L5-S1 Ashley Ojdea NP [address] [facility] [address] [facility] [place] [address] Phone: tel: [phone] fax: Referral ID Status Reason Start Date Expiration Date Visits Re quested Visits Authorized [id number] Closed 07/03/2021 08/03/2022 1 1 Encounter Details Date Type Department Care Team (Late st Contact Info) Description 07/03/2021 Prep for Procedure [facility] [place] [address] [phone] Ashley Ojeda NP [address] [facility] [address] [place] [address] [phone] (Work) Social History Tobacco Use Types Packs/Day Years [...] AM CDT Zuleima Marsh RN Active * [place] Suicide Severity Rating Scale (Screener/Recent Self-Report) Question Answer Date of Assessment Author Status 1. Wish to be (Past 1 Month) No 07/03/2021 11:43 AM CDT Bonnie Marsh RN Ac tive 2. Non-Specific Active Suicidal Thoughts (Past 1 Month) No 07/03/2021 11:43 AM CDT Bonnie Marsh, RN Ac tive 6. Suicidal Behavior (Lifetime) No 07/03/2021 11:43 AM CDT Bonnie Marsh RN Ac tive documented as of this encounter Plan of Treatment Upcoming Encounters Date Type Department Care Team (Late st Contact Info) Description 08/17/2025 8:40 AM CDT Office Visit [facility] Medical Group Family Medicine - [place] [address] [place] [phone] Nelson Whatley DO [address] [place] [address] 08/29/2025 10:00 AM CDT Office Visit [facility] Medical Group Family Medicine - [place] [address] [place] [address] Nelson Whatley DO [address] [place] [address] Scheduled Orders Name Type Priority Associated Diagnoses Order Schedule Case request operating room: INJECTION EPIDURAL TRANSFORAMINAL L5-S1 Case Request Routine Once for 1 Occurrences starting 07/03/2021 until 07/03/2021 documented as of this encounter Visit Diagnoses Not on filedocumented in this encounter Care Teams Invoice Control Clerk Relationship Specialty Start Date End Date Chava John MD PCP - General FAMILY PRACTICE 05/05/20 05/23/22 Shelly Thomas MD [address] [place] [address] PCP - General FAMILY PRACTICE 05/24/22 06/08/22 None, MD Alexandre PCP - General 06/09/22 06/23/22 Shelly Thomas MD [address] [place] [address] PCP - General FAMILY PRACTICE 06/24/22 01/09/23 None, ProviderMD PCP - General UNKNOWN PHYSICIAN SPECIALTY 01/10/23 05/09/24 Nelson Whatley DO [address] [place] [address] PCP - General FAMILY PRACTICE 05/10/24 documented as of this encounter
[2025-07-26 09:15] VITALS: BP 141/89; PULSE 86; RESP 16; TEMP 36.6; O2SAT 100
--- NOTE | 2025-07-26 10:25 | WPDHPUPDATE1 ---
History and Physical Update Update Date/Time: 07/26/25 10:25 History and Physical has been reviewed, including an updated exam of the patient. There are NO changes in the patient's condition. Risks, benefits, and alternatives have been discussed and questions answered. Patient agrees to proceed with procedure.
--- NOTE | 2025-07-26 10:25 | W.PM.PROC2 ---
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 (4 levels blocked). Surgeon Sd Caldwell MD Brass Instrument Repair Technician None. Anesthesia Local Description of Procedure INFORMED CONSENT: Risks, benefits and alternatives to the procedure were discussed in detail with the patient who expressed explicit understanding and consent to proceed. Patient was informed verbally and in written form regarding the risks associated with the procedure including the low risk of serious infection, bleeding/bruising, allergic reaction, nerve or organ injury, paralysis, procedural site pain or discomfort, worsening pain and/or mobility, failure to treat and/or disfigurement. The patient expressed explicit understanding and consent to proceed. All materials required for the procedure were available prior to procedure start. Site and side were marked prior to procedure and confirmed in the presence of the patient. PROCEDURE IN DETAIL: The patient was brought to the procedural suite and placed in the prone position. Patient was made comfortable with use of pillows under the head/chest, hips and ankles. Skin overlying the injection site on the affected side(s) was prepared broadly with ChloraPrep applicator and draped in a sterile manner. Aseptic technique was used throughout. The endplates of the vertebral bodies at the site(s) of interest were aligned in the AP view. Ipsilateral oblique angulation was utilized to optimize visualization of the intersection between the superior articulating process and transverse process at each target site. Local anesthesia was established by infiltration with approximately 5 mL of 1% lidocaine via a 1-1/2 inch 27-gauge needle. A 25-gauge 5.0 inch Quincke spinal needle was advanced until the needle tip contacted periosteum at the target site, right L3. Lateral view was utilized to confirm the appropriate placement of the needle tip just anterior to the facet line and superior to the pedicle. In the Lateral view, 0.25 mL of Omnipaque 300 contrast medium was injected after negative aspiration for CSF, blood or other bodily fluid, showing appropriate extra-articular spread of contrast without evidence of intravascular, foraminal or intrathecal placement. A 0.5 mL solution of 0.5% PF bupivacaine was injected after negative repeat aspiration. Appropriate spread of the injectate was confirmed with washout of previously injected contrast. No parasthesias were elicited. Needle was removed completely intact without difficulty. The same exact procedure was repeated for all remaining levels on the ipsilateral side, right L4, L5 medial branches/dorsal ramus, modified as necessary to accommodate for the new target location with identical findings and results and no evidence of complication. The same exact procedure was repeated for all remaining levels on the contralateral side, left L3, L4, L5 medial branches/dorsal ramus, modified as necessary to accommodate for the new target location with identical findings and results and no evidence of complication. Images were saved and documented in the patient chart. Patient's skin was cleaned and sterile bandage applied. The patient tolerated the procedure well. The patient was transported to the recovery area in stable condition where they were observed for an appropriate amount of time prior to discharge, without evidence of complication. Patient was instructed on the appropriate completion of a pain diary over the next 12-24 hours. The patient was instructed to avoid excessive activity for the next 48 hours, including climbing and frequent use of stairs. Showers only for 48 hours. They were instructed not to drive or operate heavy machinery for 24 hours. They are to monitor for severe headaches, fevers, chills, night sweats, erythema/swelling at the site or any other signs of infection, bleeding/bruising, bowel or bladder changes as well as new pain, weakness or numbness in the upper or lower extremity. Should they notice these changes, they are instructed to call our office immediately or report directly to the nearest Emergency Department if no answer or if after posted office hours. COMPLICATIONS: None COMMENTS: None CONTRAST WASTED: 28.5mL Omnipaque 300. Complications No immediate complications Condition Stable Disposition Same day [facility] Billing Surgery - Charge Forward: Surgery Billing
[2025-07-26] MEDS: LIDOCAINE 1% PF INJ 5 ML VIAL INFILTRATE (10:38)
[2025-07-26 10:39] VITALS: BP 175/90; PULSE 81; RESP 20; O2SAT 98
[2025-07-26] MEDS: BUPivacaine HCL 0.5% 10 ML AMP 5 ML INFILTRATE (10:39)
[2025-07-26 10:46] VITALS: BP 168/79; PULSE 80; RESP 17; O2SAT 99
[2025-07-26 10:51] VITALS: BP 146/85; PULSE 83; RESP 18; O2SAT 100
== END 2025-07-26 11:02 | disposition home or self-care (01) ==
PROVIDERS: Visit Provider Anesthesiology Pain Medicine
PROC: (CPT 64493; principal; 2025-07-26 09:50)
DX: M47.816 Spondylosis without myelopathy or radiculopathy, lumbar region (principal)
CPT/HCPCS: 64493; 64494 ×2; 64495 ×2; 99199